=== PATIENT | male | born 1995 | race Caucasian/White ===

== ENCOUNTER 2019-08-29 20:03 | Emergency (ER) | payer OTHER ==
[~2019-08-29] VITALS: Ht 188 cm; Wt 99.8 kg
[2019-08-29] MEDS ORDERED: ADDERALL XR 1515 MG PO (20:29)
[2019-08-29] MEDS ORDERED: OMEPRAZOLE40 MG PO (20:30)
[2019-08-29 21:09] LABS: INFLUENZA A ANTIGEN Negative (Negative); INFLUENZA B ANTIGEN Negative (Negative)
[2019-08-29] MEDS ORDERED: BUTALB-APAP-CA1 EACH PO (21:25)
[2019-08-29 21:42] VITALS: BP 135/80
== END 2019-08-29 21:45 | disposition home or self-care (01) ==
LOC: M.ERS 20:03
PROVIDERS: Nurse Practitioner Psychiatric/Mental Health
DX: R51 Headache (principal); R05 Cough; R03.0 Elevated blood-pressure reading, without diagnosis of hypertension; J34.89 Other specified disorders of nose and nasal sinuses; J45.909 Unspecified asthma, uncomplicated; K50.90 Crohn's disease, unspecified, without complications; Z88.8 Allergy status to other drugs, medicaments and biological substances